=== PATIENT | female | born 1965 | race Caucasian/White ===

== ENCOUNTER 2016-11-26 17:37 | Emergency (ER) | payer OTHER ==
[~2016-11-26] VITALS: Ht 167.6 cm; Wt 84.5 kg
[2016-11-26 17:49] VITALS: Ht 167.6 cm; Wt 84.5 kg
[2016-11-26] MEDS ORDERED: KETOROLAC 60 MG INJ IM STA (19:35)
[2016-11-26] MEDS ORDERED: PHEN-538 PO (19:38)
[2016-11-26] MEDS ORDERED: CEPH-443 PO (19:38)
--- NOTE | 2016-11-26 19:38 | ERD ---
ER Documentation Chief Complaint Date/Time DATE: 11/26/16 TIME: 19:35 Chief Complaint pain and bleeding with urination x 4 days HPI This is a 51-year-old female with a history of diabetes and high cholesterol presenting to the emergency department complaining of painful urination and suprapubic pain for the past 4 days. Patient does admit to having mild bleeding after wiping on Friday. Patient states her pelvic pain is mild and describes as pressure-like pain. Patient denies any fevers, flank pain. She denies taking any medications for this ROS All systems reviewed and are negative except as per history of present illness. Allergies Allergies: Coded Allergies: No Known Allergy (Unverified , 11/26/16) PMhx/Soc History of Surgery: No Anesthesia Reaction: No Hx Neurological Disorder: No Hx Respiratory Disorders: No Hx Cardiac Disorders: No Hx Psychiatric Problems: No Hx Miscellaneous Medical Probl: Yes (DIABETES, HYPERTENSION, CHOLESTEROL ) Hx Alcohol Use: No Hx Substance Use: No Hx Tobacco Use: No Physical Exam Vitals Vital Signs Date Time Temp Pulse Resp B/P Pulse Ox O2 Delivery O2 Flow Rate FiO2 11/26/16 17:49 98.7 94 16 118/77 96 Physical Exam General: well-developed/well-nourished, in no apparent distress, non-toxic appearing HENT: NC/AT Eyes: Conjunctiva normal Neck: Supple Pulm: CTA bilaterally, normal breathing CV: Normal S1S2 GI: Soft, non-distended, normal bowel sounds, TTP on suprapubic region Back: No midline tenderness, no masses, No CVAT Ext: No clubbing, cyanosis, or edema Neuro: Alert and orientated Skin: intact, normal turgor Psych: Normal mood and mentation Procedures/MDM This is a 51-year-old female presenting to the emergency room with signs and symptoms most consistent with a urinary tract infection. There was no evidence of pyelonephritis or nephrolithiasis. Patient appears well, nontoxic and afebrile. A urine dipstick showed evidence of UTI. Urine culture sent out because of her comorbidities. Prescription for Keflex provided, discussed to follow-up with her primary care physician. Discussed return to the ER for any worsening sinus symptoms patient understands and agrees with plan Departure Diagnosis: Primary Impression: UTI (urinary tract infection) Condition: Stable LORRIE ATWOOD PA-C Nov 26, 2016 19:37
[2016-11-26 19:57] LABS: URINE BLOOD (Dip) POC Trace-intact (NEGATIVE)
[2016-11-26 20:19] VITALS: BP 145/82; PULSE 80; RESP 18
== END 2016-11-26 20:20 | disposition home or self-care (01) ==
LOC: FTE 17:37
DX: N39.0 Urinary tract infection, site not specified (principal); I10 Essential (primary) hypertension; E11.9 Type 2 diabetes mellitus without complications; R10.2 Pelvic and perineal pain
CPT/HCPCS: 81003; 87086; 96372; J1885; Z7502

== ENCOUNTER 2017-01-02 10:32 | Emergency (ER) | payer OTHER ==
[~2017-01-02] VITALS: Ht 165.1 cm; Wt 81.5 kg
[~2017-01-02 10:32] MED LIST: CEPH-443 PO; PHEN-538 PO
[2017-01-02 10:36] VITALS: Ht 165.1 cm; Wt 81.5 kg
[2017-01-02] MEDS ORDERED: KETOROLAC 60 MG INJ IM STA (10:56)
[2017-01-02] MEDS ORDERED: ACET1TAB40 PO (11:20)
[2017-01-02] MEDS ORDERED: AMO500 PO (11:20)
[2017-01-02] MEDS ORDERED: IBUP-1542 PO (11:20)
--- NOTE | 2017-01-02 11:24 | ERD ---
ER Documentation Chief Complaint Date/Time DATE: 01/02/17 TIME: 11:23 Chief Complaint SORE THROAT AND EAR PAIN SINCE YESTERDAY HPI This 51-year-old female presents with sore throat and ear pain for last 2 days. She may have tactile fevers but no measured temperature. She has vomiting, abdominal pain, diarrhea. She denies cough ROS All systems reviewed and are negative except as per history of present illness. Medications Home Meds Active Scripts Ibuprofen* (Motrin*) 600 Mg Tab, 600 MG PO Q6, #15 TAB Prov:EARL CASTRO MD 01/02/17 Acetaminophen with Codeine (Acetaminophen-Cod #3 Tablet) 1 Each Tablet, 1 TAB PO Q6H Y for PAIN, #7 TAB Prov:EARL CASTRO MD 01/02/17 Amoxicillin* (Amoxicillin*) 500 Mg Cap, 500 MG PO TID for 10 Days, CAP Prov:EARL CASTRO MD 01/02/17 Phenazopyridine Hcl* (Pyridium*) 200 Mg Tab, 200 MG PO TID Y for URINARY PAIN, # 6 TAB Prov:LORRIE ATWOOD PA-C 11/26/16 Cephalexin* (Keflex*) 500 Mg Capsule, 500 MG PO QID for 7 Days, CAP Prov:LORRIE ATWOOD PA-C 11/26/16 Allergies Allergies: Coded Allergies: No Known Allergy (Unverified , 11/26/16) PMhx/Soc History of Surgery: No Anesthesia Reaction: No Hx Neurological Disorder: No Hx Respiratory Disorders: No Hx Cardiac Disorders: No Hx Psychiatric Problems: No Hx Miscellaneous Medical Probl: Yes (DIABETES, HYPERTENSION, CHOLESTEROL ) Hx Alcohol Use: No Hx Substance Use: No Hx Tobacco Use: No Physical Exam Vitals Vital Signs Date Time Temp Pulse Resp B/P Pulse Ox O2 Delivery O2 Flow Rate FiO2 01/02/17 10:36 100.7 106 22 130/82 97 Physical Exam Const: []Chandrika, [id number]. Head: Atraumatic Eyes: Normal Conjunctiva ENT: Normal External Ears, Nose and Mouth.TMs normal. There is some petechia and erythema the oropharynx and tonsils with exudate. Uvula is midline and airway pateTender anterior cervical lymphadenitis Neck: Full range of motion..~ No meningismus. Resp: Clear to auscultation bilaterally Cardio: Regular rate and rhythm, no murmurs Abd: Soft, non tender, non distended. Normal bowel sounds Skin: No petechiae or rashes Back: No midline or flank tenderness Ext: No cyanosis, or edema Neur: Awake and alert Psych: Normal Mood and Affect Results 24 hrs Current Medications Medications (Trade) Dose Ordered Sig/Hemal Route PRN Reason Start Time Stop Time Status Last Admin Dose Admin Ketorolac Tromethamine (Toradol) 60 mg ONCE STAT IM 01/02/17 10:56 01/02/17 10:57 DC 01/02/17 11:15 Departure Diagnosis: Primary Impression: Pharyngitis, acute Pharyngitis/tonsillitis etiology: unspecified etiology Qualified Code: J02.9 - Acute pharyngitis, unspecified etiology Additional Impression: Left ear pain Condition: Stable Patient Instructions: Pharyngitis, Strep (Presumed) Additional Instructions: Cheque otro vez con keenan doctor primario en el proximo gongora or regresa para mas o nueva simptomas. EARL CASTRO MD Jan 02, 2017 11:24
== END 2017-01-02 11:37 | disposition home or self-care (01) ==
LOC: FTE 10:32
DX: J02.9 Acute pharyngitis, unspecified (principal); H92.02 Otalgia, left ear; E11.9 Type 2 diabetes mellitus without complications; I10 Essential (primary) hypertension
CPT/HCPCS: 96372; J1885; Z7502